=== PATIENT | female | born 1940 | race African-American/Black ===

== ENCOUNTER → 2020-10-12 | Outpatient (CLI) | payer MEDICARE | LOC: NM 08:51 | PROVIDERS: ATTEND Radiology Body Imaging | DX: M54.9 Dorsalgia, unspecified (principal); Z12.89 Encounter for screening for malignant neoplasm of other sites; R42 Dizziness and giddiness; C34.32 Malignant neoplasm of lower lobe, left bronchus or lung | CPT/HCPCS: 77067; 78306; A9503 ==

== ENCOUNTER → 2020-11-02 | Outpatient (CLI) | payer MEDICARE ==
[~2020-11-02] MED LIST: GADOBENATE DIMEGLUMINE 1 ML IV ONE
== END ==
LOC: MRI 08:43
PROVIDERS: ATTEND Radiology Body Imaging
DX: C34.32 Malignant neoplasm of lower lobe, left bronchus or lung (principal); R42 Dizziness and giddiness; M54.9 Dorsalgia, unspecified
CPT/HCPCS: 70553